=== PATIENT | male | born 1965 | race Caucasian/White ===

== ENCOUNTER 2022-09-18 06:34 | Day surgery (SDC) | payer OTHER ==
[~2022-09-18 06:34] MED LIST: Lactated Ringers 1,000 ML IV SCH; Sodium Chloride 0.9% 10 ML Syringe FLUSH PRN; Sodium Chloride 0.9% 2.5 ML Syringe FLUSH PRN; Sodium Chloride 0.9% 20 ML SDV IV PRN
[2022-09-18] MEDS ORDERED: fentaNYL 50 MCG/ML SDV IVPUSH PRN (06:56)
[2022-09-18] MEDS ORDERED: Morphine 2 MG/ML SYRINGE IVPUSH PRN (06:56)
[2022-09-18] MEDS ORDERED: droPERidol 5 MG/2 ML SDV IVPUSH PRN (06:56)
[2022-09-18] MEDS ORDERED: Naloxone 0.4 MG/ML SDV IVPUSH PRN (06:56)
[2022-09-18] MEDS ORDERED: Metoclopramide 10 MG/2 ML SDV IVPUSH PRN (06:56)
[2022-09-18] MEDS ORDERED: Albuterol 0.083% 2.5 MG/3 ML Neb Soln NEB PRN (06:56)
[2022-09-18] MEDS ORDERED: Ondansetron 4 MG/2 ML SDV IVPUSH PRN (06:56)
[2022-09-18] MEDS ORDERED: HYDROmorphone 1 MG/ML Syringe IVPUSH PRN (06:56)
[2022-09-18] MEDS ORDERED: Ropivacaine 0.5% 5 MG/ML 30 ML SDV ONE (07:18)
[2022-09-18] MEDS ORDERED: Bupivacaine 0.5% 30 ML SDV ONE (07:19)
[2022-09-18] MEDS ORDERED: Dexamethasone 4 MG/ML 5 ML MDV ONE (07:22)
[2022-09-18] MEDS ORDERED: Water For Injection, Sterile 20 ML ONE ×2 (07:22→07:30)
[2022-09-18] MEDS ORDERED: Dexmedetomidine 200 MCG/2 ML SDV ONE (07:22)
[2022-09-18] MEDS ORDERED: Ondansetron 4 MG/2 ML SDV ONE (07:22)
[2022-09-18] MEDS ORDERED: Lidocaine 2% 5 ML SDV ONE (07:22)
[2022-09-18] MEDS ORDERED: Rocuronium Bromide 50 MG/5 ML Syringe ONE ×2 (07:22→08:14)
[2022-09-18] MEDS ORDERED: Sugammadex Sodium 200 MG/2 ML VIAL ONE (07:22)
[2022-09-18] MEDS ORDERED: fentaNYL 100 MCG/2 ML SDV ONE (07:23)
[2022-09-18] MEDS ORDERED: Propofol 200 MG/20 ML SDV ONE (07:23)
[2022-09-18] MEDS ORDERED: Phenylephrine HCl 0.5 MG/5 ML AMP ONE (08:11)
[2022-09-18] MEDS ORDERED: Albuterol 8 GM Inhaler ONE (08:11)
[2022-09-18] MEDS ORDERED: ceFAZolin 2 GM Vial ONE (08:24)
[2022-09-18] MEDS ORDERED: diphenhydrAMINE 50 MG/ML SDV ONE (09:41)
[2022-09-18] MEDS ORDERED: Famotidine 20 MG/2 ML SDV ONE (09:43)
[2022-09-18] MEDS ORDERED: ceFAZolin 2 GM in Sodium Chloride 0.9% 50 ML IV ONE (10:35)
[2022-09-18] MEDS ORDERED: Bupivacaine 25%/EPINEPHrine/PF 30 ML ONE (10:56)
== END 2022-09-18 13:00 | disposition home or self-care (01) ==
LOC: MW.SDS 06:34
PROVIDERS: ATTEND Surgery
DX: K40.30 Unilateral inguinal hernia, with obstruction, without gangrene, not specified as recurrent (principal); D17.6 Benign lipomatous neoplasm of spermatic cord; F17.210 Nicotine dependence, cigarettes, uncomplicated; J44.9 Chronic obstructive pulmonary disease, unspecified; E66.9 Obesity, unspecified; F41.9 Anxiety disorder, unspecified; F32.A Depression, unspecified; Z79.899 Other long term (current) drug therapy; Z68.38 Body mass index [BMI] 38.0-38.9, adult; Z98.890 Other specified postprocedural states; Z79.890 Hormone replacement therapy
CPT/HCPCS: 49507; A9270; C1781; J0131; J0690; J1100; J1170; J1200; J2370; J2405; J2704; J2795; J3010; J3490; J7120; 00830; 64486; J7620-GY

== ENCOUNTER 2023-05-07 10:20 | Emergency (ER) | payer OTHER ==
[2023-05-07 11:14] LABS: BASOPHILS ABSOLUTE AUTO 0.03 K/uL (0.00-0.20); BASOPHILS PERCENT AUTO 0.7 % (0.0-1.0); EOSINOPHILS ABSOLUTE AUTO 0.09 K/uL (0.00-0.45); HEMATOCRIT 43.4 % (42.0-52.0); HEMOGLOBIN 15.6 g/dL (14.0-18.0); IMMATURE GRAN ABSOLUTE AUTO 0.01 K/uL (0.00-0.05); IMMATURE GRAN PERCENT AUTO 0.2 % (0.0-0.4); LYMPHOCYTES ABSOLUTE AUTO 1.76 K/uL (1.00-4.80); LYMPHOCYTES PERCENT AUTO 38.6 % (24.0-44.0); MEAN CORPUSCULAR HEMOGLOBIN 33.5 pg (28.0-32.0); MEAN CORPUSCULAR HGB CONC 35.9 g/dL (32.0-36.0); MEAN CORPUSCULAR VOLUME 93.3 fL (83.0-99.0); MEAN PLATELET VOLUME 8.4 fL (9.4-12.4); MONOCYTES ABSOLUTE AUTO 0.31 K/uL (0.00-0.80); MONOCYTES PERCENT AUTO 6.8 % (0.0-8.0); NEUTROPHILS ABSOLUTE AUTO 2.36 K/uL (1.80-7.70); NEUTROPHILS PERCENT AUTO 51.7 % (41.0-71.0); PLATELET COUNT,PLT 158 K/uL (150-400); RED BLOOD CELL COUNT 4.65 M/uL (4.52-5.90); WHITE BLOOD CELL COUNT,WBC 4.56 K/uL (3.9-11.3)
[2023-05-07 11:38] LABS: A/G RATIO 1.1 (0.9-1.6); ALBUMIN 3.7 g/dL (3.4-5.0); BILIRUBIN TOTAL 0.8 mg/dL (0.2-1.0); CALCIUM 8.9 mg/dL (8.5-10.1); CARBON DIOXIDE,CO2 28.7 mmol/L (21.0-32.0); CREATININE 1.1 mg/dL (0.8-1.3); EST CRCL DRUG DOSING (CG) 74.66 mL/min; POTASSIUM,K 3.9 mmol/L (3.5-5.1); PROTEIN TOTAL,TP 7.1 g/dL (6.4-8.2)
[2023-05-07 11:43] LABS: MAGNESIUM 1.8 mg/dL (1.8-2.4)
== END 2023-05-07 12:14 | disposition home or self-care (01) ==
LOC: MW.ED 10:20
DX: R07.9 Chest pain, unspecified (principal); J44.9 Chronic obstructive pulmonary disease, unspecified; E66.9 Obesity, unspecified; Z79.899 Other long term (current) drug therapy; Z68.41 Body mass index [BMI] 40.0-44.9, adult
CPT/HCPCS: 36415; 71046; 71046-26; 80053; 83690; 83735; 84484; 85025; 93005; 93010; 99282; 99285